=== PATIENT | female | born 1935 | race Caucasian/White ===

== ENCOUNTER 2018-08-04 21:34 | Observation (INO) ==
--- NOTE | 2018-08-04 21:52 | ED ---
HPI General Chief Complaint: Chest Pain Stated Complaint: Chest pain, high BP, Lung Cancer Time Seen by Provider: 08/04/18 21:50 Source: patient Mode of arrival: ambulatory Limitations: no limitations History of Present Illness HPI narrative: 82-year-old female came to the emergency room with history of right-sided chest pain near the shoulder. Patient says this is been going on for past 48 hours. The pain initially started off at the shoulder and now it has radiated down more to the right chest. No aggravating or relieving factors identified. Pain is 8 out of 10. Patient describes the pain as an ache. Patient was significantly hypertensive upon arrival. Patient says she has history of hypertension and her oncologist recently started her on another blood pressure medication 2 days back. No history of shortness of breath, nausea, vomiting or diaphoresis. She has history of lung cancer with right upper lobe resection in the past. She is on a maintenance chemotherapy currently. No history of coronary artery disease. Patient has not had this kind of pain in the past. Related Data Home Medications Medication Instructions Recorded Confirmed cholecalciferol (vitamin D3) 1,000 unit PO DAILY 08/04/18 08/04/18 [Vitamin D3] enalapril maleate 5 mg PO DAILY 08/04/18 08/04/18 gabapentin 600 mg PO DAILY 08/04/18 08/04/18 metoprolol tartrate 25 mg PO HS 08/04/18 08/04/18 Allergies Allergy/AdvReac Type Severity Reaction Status Date / Time adhesive Allergy Severe Blister Unverified 08/04/18 21:40 bacitracin Allergy Severe Blister Unverified 08/04/18 21:40 codeine Allergy Severe Hives Unverified 08/04/18 21:40 iodine Allergy Severe Hives Unverified 08/04/18 21:40 polymyxin B Allergy Severe Blister Unverified 08/04/18 21:40 potassium iodide Allergy Severe Blister Unverified 08/04/18 21:40 povidone-iodine Allergy Severe Blister Unverified 08/04/18 21:40 sodium iodide Allergy Severe Blister Unverified 08/04/18 21:40 sodium iodide Allergy Severe Blister Unverified 08/04/18 21:40 Sulfa (Sulfonamide Allergy Severe Hives Unverified 08/04/18 21:40 Antibiotics) Review of Systems ROS: all other systems reviewed are negative [facility] Medical History Medical History GERD (gastroesophageal reflux disease) (Acute) Hyperlipidemia (Acute) Hypertension (Acute) Lung cancer (Acute) Neuropathy (Acute) Surgical History Surgical History Hx of appendectomy (Acute) Hx of cholecystectomy (Acute) S/P lobectomy of lung (Acute) Social History Social History Substance History: No History of Abuse Second Hand Smoke Exposure: No Smoking Status: Never smoker How Often Do You Have a Drink Containing Alcohol: Never Hx Recent Travel: No Exam Narrative Exam Narrative: GENERAL: Awake, alert, anxious, moderate distress, elderly and frail SKIN: Focused skin assessment warm/dry. HEAD: Atraumatic. Normocephalic. EYES: Pupils equal and round. No scleral icterus. No injection or drainage. ENT: No nasal bleeding or discharge. Mucous membranes pink and moist. NECK: Trachea midline. No JVD. CARDIOVASCULAR: Regular rate and rhythm. No murmur appreciated. RESPIRATORY: No accessory muscle use. Clear to auscultation. Breath sounds equal bilaterally. GASTROINTESTINAL: Abdomen soft, non-tender, nondistended. Hepatic and splenic margins not palpable. MUSCULOSKELETAL: No obvious deformities. No clubbing. No cyanosis. No edema. NEUROLOGICAL: Awake and alert. No obvious cranial nerve deficits. Motor grossly within normal limits. Normal speech. PSYCHIATRIC: Appropriate mood and affect; insight and judgment normal. Course Initial Documented Vital Signs Temperature 97.8 F 08/04/18 21:43 Pulse Rate 99 H 08/04/18 21:43 Respiratory Rate 16 08/04/18 21:43 Blood Pressure 253/124 H 08/04/18 21:43 Pulse Oximetry 99 08/04/18 21:43 Last Documented Vital Signs Temperature 97.9 F 08/05/18 13:40 Pulse Rate 72 08/05/18 14:00 Respiratory Rate 16 08/05/18 13:40 Blood Pressure 105/65 08/05/18 13:40 Pulse Oximetry 98 08/05/18 13:40 Medical Decision Making MDM Narrative Medical decision making narrative: 11:08 PM blood test results are back and within acceptable limits. Patient was given morphine for the pain. I have given her medication to bring her blood pressure down and the last blood pressure is 180/90. Patient will be admitted to the chest pain center to rule out ACS at this point. Medical Screen Exam Complete: Yes Emergency Medical Condition: Yes Lab Data Result diagrams: 08/04/18 22:00 08/04/18 22:00 Lab Results 08/04/18 08/04/18 08/05/18 Range/Units 22:00 22:00 01:05 WBC 5.5 (4.0-11.0) th/mm3 RBC 3.83 L (4.00-5.30) mil/mm3 Hgb 12.8 (11.6-15.3) gm/dL Hct 35.9 (35.0-46.0) % MCV 93.6 (80.0-100.0) fL MCH 33.5 (27.0-34.0) pg MCHC 35.8 (32.0-36.0) % RDW 13.4 (11.6-17.2) % Plt Count 238 (150-450) th/mm3 MPV 7.2 (7.0-11.0) fL Neut % (Auto) 56.7 (16.0-70.0) % Lymph % (Auto) 28.5 (9.0-44.0) % [place] % (Auto) 8.7 H (0.0-8.0) % Eos % (Auto) 5.2 H (0.0-4.0) % Baso % (Auto) 0.9 (0.0-2.0) % Neut # (Auto) 3.1 (1.8-7.7) th/mm3 Lymph # (Auto) 1.6 (1.0-4.8) th/mm3 [place] # (Auto) 0.5 (0.0-0.9) th/mm3 Eos # (Auto) 0.3 (0.0-0.4) th/mm3 Baso # (Auto) 0.1 (0.0-0.2) th/mm3 WBC Differential . Differential Comment Auto diff final Sodium 145 (136-145) meq/L Potassium 3.6 (3.5-5.1) meq/L Chloride 108 H (98-107) meq/L Carbon Dioxide 29.3 (21.0-32.0) meq/L Anion Gap 8 (5-15) meq/L BUN 20 H (7-18) mg/dL Creatinine 0.77 (0.50-1.00) mg/dL Estimated GFR 72 L (>89) mL/min Random Glucose 110 H (74-106) mg/dL Calcium 8.8 (8.5-10.1) mg/dL Total Bilirubin 0.5 (0.2-1.0) mg/dL AST 28 (15-37) U/L ALT 22 (10-53) U/L Alkaline Phosphatase 141 H (45-117) U/L Total Creatine Kinase 109 (26-192) U/L Troponin I Less than 0.02 L Less than 0.02 L (0.02-0.05) ng/mL Total Protein 6.9 (6.4-8.2) g/dL Albumin 3.7 (3.4-5.0) g/dL 08/05/18 Range/Units 04:38 WBC (4.0-11.0) th/mm3 RBC (4.00-5.30) mil/mm3 Hgb (11.6-15.3) gm/dL Hct (35.0-46.0) % MCV (80.0-100.0) fL MCH (27.0-34.0) pg MCHC (32.0-36.0) % RDW (11.6-17.2) % Plt Count (150-450) th/mm3 MPV (7.0-11.0) fL Neut % (Auto) (16.0-70.0) % Lymph % (Auto) (9.0-44.0) % [place] % (Auto) (0.0-8.0) % Eos % (Auto) (0.0-4.0) % Baso % (Auto) (0.0-2.0) % Neut # (Auto) (1.8-7.7) th/mm3 Lymph # (Auto) (1.0-4.8) th/mm3 [place] # (Auto) (0.0-0.9) th/mm3 Eos # (Auto) (0.0-0.4) th/mm3 Baso # (Auto) (0.0-0.2) th/mm3 WBC Differential Differential Comment Sodium (136-145) meq/L Potassium (3.5-5.1) meq/L Chloride (98-107) meq/L Carbon Dioxide (21.0-32.0) meq/L Anion Gap (5-15) meq/L BUN (7-18) mg/dL Creatinine (0.50-1.00) mg/dL Estimated GFR (>89) mL/min Random Glucose (74-106) mg/dL Calcium (8.5-10.1) mg/dL Total Bilirubin (0.2-1.0) mg/dL AST (15-37) U/L ALT (10-53) U/L Alkaline Phosphatase (45-117) U/L Total Creatine Kinase 61 (26-192) U/L Troponin I Less than 0.02 L (0.02-0.05) ng/mL Total Protein (6.4-8.2) g/dL Albumin (3.4-5.0) g/dL Imaging Data Radiologist's impression: Chest X-Ray 08/04/18 22:00 CONCLUSION: Chronic changes without acute abnormality. Myocardial Perfusion Scan Nuc Med 08/05/18 00:00 CONCLUSION: 1. Unremarkable myocardial perfusion examination. ECG Data Attestation: I personally reviewed and interpreted this ECG as follows: Interpretation: Twelve-lead EKG was reviewed by me. Normal sinus rhythm, normal axis, nonspecific ST-T wave changes. Heart rate of 94 bpm. Discharge Plan Discharge Disposition Patient Disposition: ED Admit(ED Internal Use Only) Discharge Condition Condition: Stable Discharge Order Discharge Orders: Discharge Order (Routine); Ordered 08/05/18 Ordered By: Isaura Shafer ED Use Only Admit Order (Routine); Ordered 08/04/18 Ordered By: Shasha Rivas Physicians Team ED Provider: Shasha Rivas Primary Care Provider: Thomas Lamb Attending Provider: Arvin Llanos Other Providers: [facility],Insurance Status ED Status: Left Department Discharge Information Discharge Date/Time: 08/05/18 01:22
[2018-08-04] MEDS ORDERED: Morphine Inj 4 MG/ML Vial IV.PUSH ONE (22:00)
[2018-08-04] MEDS ORDERED: Metoprolol Tartrate 50 MG Tablet PO ONE (22:00)
[2018-08-04 22:15] LABS: Baso # (Auto) 0.1 th/mm3 (0.0-0.2); Baso % (Auto) 0.9 % (0.0-2.0); Eos # (Auto) 0.3 th/mm3 (0.0-0.4); Eos % (Auto) 5.2 % (0.0-4.0); Hematocrit 35.9 % (35.0-46.0); Hemoglobin 12.8 gm/dL (11.6-15.3); Lymph # (Auto) 1.6 th/mm3 (1.0-4.8); Lymph % (Auto) 28.5 % (9.0-44.0); Mean Corpuscular HGB Conc 35.8 % (32.0-36.0); Mean Corpuscular Hemoglobin 33.5 pg (27.0-34.0); Mean Corpuscular Volume 93.6 fL (80.0-100.0); Mean Platelet Volume 7.2 fL (7.0-11.0); Mono # (Auto) 0.5 th/mm3 (0.0-0.9); Mono % (Auto) 8.7 % (0.0-8.0); Neut # (Auto) 3.1 th/mm3 (1.8-7.7); Neut % (Auto) 56.7 % (16.0-70.0); Platelet Count 238 th/mm3 (150-450); Red Blood Count 3.83 mil/mm3 (4.00-5.30); Red Cell Distribution Width 13.4 % (11.6-17.2); White Blood Count 5.5 th/mm3 (4.0-11.0)
--- NOTE | 2018-08-04 22:17 | XR ---
EXAM DATE: 08/04/2018 10:14 PM EST AGE/SEX: 82 years / Female INDICATIONS: Right chest pain, increased blood pressure. CLINICAL DATA: This is the patient's initial encounter. Patient reports that signs and symptoms have been present for 2 days and indicates a pain score of 8/10. MEDICAL/SURGICAL HISTORY: Carcinoma, lung. . Right lobectomy. COMPARISON: [facility], XR CHEST PA AND LAT, 12/31/2017. . FINDINGS: A single AP view of the chest demonstrates chronic interstitial changes within the perihilar distribu tion of both lungs. Stable from the prior study. The lungs are hyper aerated. No acute infiltrate or effusion. Heart is normal in size. A degenerative thoracic spine. Cement augmentation involving a low er thoracic vertebral body likely T12. CONCLUSION: Chronic changes without acute abnormality. Electronically signed by: Brayan Gonzales MD Board Certified Radiologist 08/04/2018 10:15 PM EST
[2018-08-04 22:31] LABS: Alanine Aminotransferase 22 U/L (10-53)
[2018-08-04 22:34] LABS: Alkaline Phosphatase 141 U/L (45-117); Total Protein 6.9 g/dL (6.4-8.2)
[2018-08-04 22:36] LABS: Albumin 3.7 g/dL (3.4-5.0); Anion Gap 8 meq/L (5-15); Aspartate Aminotransferase 28 U/L (15-37); Blood Urea Nitrogen 20 mg/dL (7-18); Calcium 8.8 mg/dL (8.5-10.1); Carbon Dioxide 29.3 meq/L (21.0-32.0); Chloride 108 meq/L (98-107); Glomerular Filtration Rate 72 mL/min (>89); Glucose,Random 110 mg/dL (74-106); Potassium 3.6 meq/L (3.5-5.1); Sodium 145 meq/L (136-145)
[2018-08-05] MEDS ORDERED: niCARdipine Inj 25 MG in Sodium Chlor 0.9% Inj 240 ML IV.CONT PRN (00:24)
[2018-08-05] MEDS ORDERED: Ketorolac Inj 30 MG/ML (IVP) Vial IV.PUSH ONE (00:25)
[2018-08-05 02:11] LABS: Creatine Kinase 109 U/L (26-192)
[2018-08-05 07:07] LABS: Creatine Kinase 61 U/L (26-192)
--- NOTE | 2018-08-05 08:33 | P.HPCA ---
History of Present Illness Primary Care Physician: Thomas Lamb MD Chief Complaint: Chest pain History of Present Illness: 82-year-old female with history of right sided lung cancer, hypertension, and hyperlipidemia presents emergency room for further evaluation of right-sided chest pain. Onset 2 days ago. Comfort began in right shoulder initially, later radiating to right anterior chest. Characterized a "as sore muscle." Moderate in severity. Duration constant. No associated symptoms of nausea, dyspnea, or diaphoresis. No precipitating or relieving factors. No current discomfort, however states "I haven't started moving yet." No similar discomfort in the past. During discomfort episode took her blood pressure. Systolic blood pressure reported in be greater 200. At that time they notified their daughter who is a nurse. SBP remained elevated therefore came to ER for further evaluation. Follows with Dr. Leonard, reporting normal stress test early this year. Reports blood pressure normally well controlled. Currently on maintenance chemotherapy medication. No recent illness, fever, cough, or injury. Past cardiac testing 10/15/16 Lexiscan-Summary: Normal study. Normal left ventricular size and ejection fraction. No ischemia or infarction identified. 09/29/16 Echocardiogram-Summary: Normal left ventricular size and systolic function. Evidence of left ventricular diastolic dysfunction, grade 1. Mild aortic stenosis with mild +181. Mild +1 MR/TR. Social history Known hypertension and hyperlipidemia. No known CAD or diabetes. Lifelong non-smoker. No alcohol use. . - Diagnosis (1) Atypical chest pain (2) Hypertension (3) Non-small cell cancer of right lung Review of Systems All other systems reviewed negative except as stated in HPI [facility] - History History Provided By: Patient, Family Member - Medical History Medical History: Medical History (Last Updated 08/05/18 @ 08:53 by EDWARD Harp) GERD (gastroesophageal reflux disease) Hyperlipidemia Hypertension Lung cancer Neuropathy - Surgical History Surgical History: Surgical History (Last Updated 08/05/18 @ 08:53 by EDWARD Harp) Hx of appendectomy Hx of cholecystectomy S/P lobectomy of lung - Tobacco History Second Hand Smoke Exposure: No Tobacco Use In Past 30 Days: No Smoking Status: Never smoker - Alcohol History How Often Do You Have a Drink Containing Alcohol: Never - Substance Use History Substance History: No History of Abuse - Travel History History of Recent Travel: No Recent Travel in the [facility] Within the Last 8 Weeks: No Recent Travel Out of the Country Within the Last 8 Weeks: No - Immunization History Tetanus Immunization: Unsure Medications and Allergies Active Medications: Active Medications Enalapril Maleate (Vasotec) 5 mg PO DAILY [facility] Gabapentin (Neurontin) 600 mg PO DAILY [facility] Metoprolol Tartrate (Lopressor) 25 mg PO HS [facility] Vitamin D (Vitamin D3) 1,000 unit PO DAILY [facility] Allergies Allergy/AdvReac Type Severity Reaction Status Date / Time adhesive Allergy Severe Blister Unverified 08/04/18 21:40 bacitracin Allergy Severe Blister Unverified 08/04/18 21:40 codeine Allergy Severe Hives Unverified 08/04/18 21:40 iodine Allergy Severe Hives Unverified 08/04/18 21:40 polymyxin B Allergy Severe Blister Unverified 08/04/18 21:40 potassium iodide Allergy Severe Blister Unverified 08/04/18 21:40 povidone-iodine Allergy Severe Blister Unverified 08/04/18 21:40 sodium iodide Allergy Severe Blister Unverified 08/04/18 21:40 sodium iodide Allergy Severe Blister Unverified 08/04/18 21:40 Sulfa (Sulfonamide Allergy Severe Hives Unverified 08/04/18 21:40 Antibiotics) Home Medications Medication Instructions Recorded Confirmed Type cholecalciferol (vitamin D3) 1,000 unit PO DAILY 08/04/18 08/04/18 History [Vitamin D3] enalapril maleate 5 mg PO DAILY 08/04/18 08/04/18 History erlotinib [Tarceva] 75 mg PO DAILY 08/04/18 08/05/18 History gabapentin 600 mg PO DAILY 08/04/18 08/04/18 History metoprolol tartrate 25 mg PO HS 08/04/18 08/04/18 History Exam Vital signs: Vital Signs 08/04/18 21:43 08/04/18 21:56 08/04/18 22:03 Temperature 97.8 F Pulse Rate 99 H 97 H 92 H Respiratory Rate 16 18 Blood Pressure 253/124 H 217/102 H Pulse Oximetry 99 100 98 08/04/18 22:08 08/04/18 22:30 08/04/18 22:45 Temperature Pulse Rate 89 88 Respiratory Rate 16 16 Blood Pressure 234/97 H 182/111 H Pulse Oximetry 98 99 98 08/04/18 23:04 08/04/18 23:32 08/05/18 00:26 Temperature Pulse Rate 86 84 89 Respiratory Rate 16 16 16 Blood Pressure 182/90 H 175/89 H 201/97 H Pulse Oximetry 100 99 98 08/05/18 00:51 08/05/18 01:16 08/05/18 02:00 Temperature Pulse Rate 84 82 Respiratory Rate 16 16 Blood Pressure 157/77 H Pulse Oximetry 98 08/05/18 03:00 08/05/18 04:00 08/05/18 05:00 Temperature 98.2 F Pulse Rate 82 70 80 Respiratory Rate 18 Blood Pressure 140/76 Pulse Oximetry 98 08/05/18 06:00 08/05/18 07:00 Temperature Pulse Rate 85 75 Respiratory Rate Blood Pressure Pulse Oximetry Intake & Output 08/04/18 08/05/18 08/05/18 18:59 06:59 18:59 Intake Total 0 / 0 Balance 0 / 0 Weight 52 kg Intake: Oral 0 / 0 Other: # Voids 2 Narrative: GENERAL: Alert WN, WD, NAD, pleasant, frail, elderly female appears chronically ill HEAD: NC, AT EYES: Sclera clear, conjunctiva without injection ENT: Mucous membranes pink and moist NECK: Supple, no masses, trachea midline CV: RRR, without murmur, rub, gallop, no JVD, S1-S2. RESP: Diminished lungs throughout bilateral, no crackles, wheeze, rhonchi, symmetrical chest rise, nonlabored, able to speak in full sentences ABD: Soft, NT, ND, no masses, positive bowel tones EXT: Pulses +2x4, no dependent edema MS: Normal tone x4 extremities, nontender, no obvious deformities, full range of motion NEURO: Motor strength 5/5 PSYCH: A+O x3, pleasant affect, speaks softly, appropriate mood, insight and judgment SKIN: Normal turgor, normal texture, no lesions, no rashes, brisk cap refill, even hair distribution Results 08/04/18 22:00 08/04/18 22:00 Cardiac Enzymes 08/04/18 08/05/18 08/05/18 Range/Units 22:00 01:05 04:38 AST 28 (15-37) U/L Troponin I Less than 0.02 L Less than 0.02 L Less than 0.02 L (0.02-0.05) ng/mL CBC 08/04/18 Range/Units 22:00 WBC 5.5 (4.0-11.0) th/mm3 RBC 3.83 L (4.00-5.30) mil/mm3 Hgb 12.8 (11.6-15.3) gm/dL Hct 35.9 (35.0-46.0) % Plt Count 238 (150-450) th/mm3 Neut # (Auto) 3.1 (1.8-7.7) th/mm3 Lymph # (Auto) 1.6 (1.0-4.8) th/mm3 [place] # (Auto) 0.5 (0.0-0.9) th/mm3 Eos # (Auto) 0.3 (0.0-0.4) th/mm3 Baso # (Auto) 0.1 (0.0-0.2) th/mm3 Comprehensive Metabolic Panel 08/04/18 Range/Units 22:00 Sodium 145 (136-145) meq/L Potassium 3.6 (3.5-5.1) meq/L Chloride 108 H (98-107) meq/L Carbon Dioxide 29.3 (21.0-32.0) meq/L BUN 20 H (7-18) mg/dL Creatinine 0.77 (0.50-1.00) mg/dL Calcium 8.8 (8.5-10.1) mg/dL AST 28 (15-37) U/L ALT 22 (10-53) U/L Alkaline Phosphatase 141 H (45-117) U/L Total Protein 6.9 (6.4-8.2) g/dL Albumin 3.7 (3.4-5.0) g/dL Intake and Output 08/04/18 08/05/18 08/05/18 22:59 06:59 14:59 Intake Total 0 / 0 Balance 0 / 0 Intake: Oral 0 / 0 Other: # Voids 2 Weight 50.802 kg 52 kg - Imaging and Cardiology Imaging: Impressions Chest X-Ray 08/04/18 22:00 CONCLUSION: Chronic changes without acute abnormality. Caprini VTE Risk Assessment Caprini VTE Risk Assessment: Moderate/High Risk (score >= 2) Caprini Risk Assessment Model: Point Value = 1 Point Value = 2 Point Value = 3 Point Value = 5 Age 41-60 Minor surgery BMI > 25 kg/m2 Swollen legs Varicose veins or History of unexplained or recurrent spontaneous Oral contraceptives or hormone replacement Sepsis (< 1 month) Serious lung disease, including pneumonia (< 1 month) Abnormal pulmonary function Acute myocardial infarction Congestive heart failure (< 1 month) History of inflammatory bowel disease Medical patient at bed rest Age 61-74 Arthroscopic surgery Major open surgery (> 45 min) Laparoscopic surgery (> 45 min) Malignancy Confined to bed (> 72 hours) Immobilizing plaster cast Central venous access Age >= 75 History of VTE Family history of VTE Factor V Leiden Prothrombin [id number] Lupus anticoagulant Anticardiolipin antibodies Elevated serum homocysteine Heparin-induced thrombocytopenia Other congenital or acquired thrombophilia Stroke (< 1 month) Elective arthroplasty Hip, pelvis, or leg fracture Acute spinal cord injury (< 1 month) Prophylaxis Regimen: Total Risk Factor Score Risk Level Prophylaxis Regimen 0-1 Low Early ambulation 2 Moderate Order ONE of the following: *Sequential Compression Device (SCD) *Heparin 5000 units SQ BID 3-4 Higher Order ONE of the following medications: *Heparin 5000 units SQ TID *Enoxaparin/Lovenox 40 mg SQ daily (WT < 150 kg, CrCl > 30 mL/min) *Enoxaparin/Lovenox 30 mg SQ daily (WT < 150 kg, CrCl > 10-29 mL/min) *Enoxaparin/Lovenox 30 mg SQ BID (WT < 150 kg, CrCl > 30 mL/min) AND/OR *Sequential Compression Device (SCD) 5 or more Highest Order ONE of the following medications: *Heparin 5000 units SQ TID (Preferred with Epidurals) *Enoxaparin/Lovenox 40 mg SQ daily (WT < 150 kg, CrCl > 30 mL/min) *Enoxaparin/Lovenox 30 mg SQ daily (WT < 150 kg, CrCl > 10-29 mL/min) *Enoxaparin/Lovenox 30 mg SQ BID (WT < 150 kg, CrCl > 30 mL/min) AND *Sequential Compression Device (SCD) Assessment and Plan - Assessment (1) Atypical chest pain Code(s): R07.89 - Other chest pain Status: Acute Plan: Admitted chest pain center. ACS ruled out 3 sets of EKGs and cardiac enzymes. Seen and evaluated by Dr. Estrellita Campbell. Discomfort atypical. Given patient comorbidities patient given option of repeating chemical cardiac testing or optimizing blood pressure medications and discharge Patient and family undecided and requesting to call Dr. Singh for his recommendations. Will place call to Dr. Singh. Further disposition to follow. 0910-Dr. Singh out of office. Most recent nuclear testing October 2016. Discussed with patient and family in length. Proceed with Lexiscan this morning , if unremarkable plan to discharge home later this afternoon. (2) Hypertension Code(s): I10 - Essential (primary) hypertension Status: Acute Plan: Continue enalapril and metoprolol. Blood pressure improved and currently normotensive. Elevated blood pressure likely related to pain response and change in dietary intake. Continue to monitor. (3) Non-small cell cancer of right lung Code(s): C34.91 - Malignant neoplasm of unspecified part of right bronchus or lung Status: Chronic Plan: Instructed by Dr. Lamb to stop Tarceva Thursday07/30/18. Follow up with oncologist as previously instructed. (2) Hypertension Qualifiers: Hypertension type: unspecified Qualified Code(s): I10 - Essential (primary) hypertension
[2018-08-05] MEDS ORDERED: Gabapentin 300 MG Capsule PO SCH (09:00)
[2018-08-05 09:10] VITALS: RESP 16
[2018-08-05] MEDS ORDERED: Regadenoson Inj 0.4 MG/5 ML Syringe IV.PUSH ONE (12:14)
--- NOTE | 2018-08-05 13:24 | NM ---
EXAM DATE: 08/05/2018 1:17 PM EST AGE/SEX: 82 years / Female INDICATIONS:Angina. . Right chest pain. CLINICAL DATA: This is the patient's initial encounter. Patient reports that signs and symptoms have been present for 2 days and indicates a pain score of 5/10. MEDICAL/SURGICAL HISTORY: Hypercholesterolemia. Hypertension. Carcinoma, lung. GERD. Append ectomy. Cholecystectomy. Lobectomy. COMPARISON: No prior exams available for comparison. DOSE: 8.1 mCi Tc 99m Myoview at rest 26.8 mCi [id number] at stress 0.4 mg Lexiscan STRESS SYMPTOMS: None. EJECTION FRACTION: >70 % TECHNIQUE: The patient underwent pharmacologic stress with infusion of prescribed dose. Continuous ECG tracing was monitored during stress. Gated SPECT imaging was performed after stress and conventi onal SPECT imaging was performed at rest. The examination was performed on a SPECT/CT scanner, both attenuation and non-corrected datasets were reviewed. FINDINGS: Distribution: The maximum perfused segment at stress is in the anterior septal wall. Perfusion Study: The pattern of perfusion at stress is within normal limits. Gated Study: There are intact wall motion and wall thickening without hypokinetic or dyskinetic segm ents. The ejection fraction is calculated at >70%. RISK CATEGORY: Low (<1% Annual Motality Rate) CONCLUSION: 1. Unremarkable myocardial perfusion examination. Electronically signed by: Mario Guadarrama MD Board Certified Radiologist 08/05/2018 1:22 PM EST
[2018-08-05 13:43] VITALS: BP 105/65; TEMP 97.9; O2SAT 98
[2018-08-05] MEDS ORDERED: Acetaminophen 500 MG Tablet PO ONE (13:56)
[2018-08-05 14:54] VITALS: PULSE 72
--- NOTE | 2018-08-05 18:04 | TR ---
Date Performed: 08/05/2018 Time Performed: 12:30:12 DOCTOR: Estrellita Campbell DRUG LIST: CLINICAL HISTORY: REASON FOR TEST: REASON FOR ENDING: OBSERVATION: CONCLUSION: Lexiscan stress test was performed under standard four minute protocol. Radionuclid e was injected one minute prior to ending the test. No electrocardiographic abormalities were present to suggest ischemia. Nuclear imaging and interpretation are pending. COMMENTS: Lexiscan stress test was performed under standard four minute protocol. Radionuclide was injected one minute prior to ending the test. No electrocardiographic abormalities were present t o suggest ischemia. Nuclear imaging and interpretation are pending.
--- NOTE | 2018-08-05 19:49 | ECG ---
Date Performed: 08/04/2018 Time Performed: 21:53:23 PTAGE: 82 years EKG: Sinus rhythm POSSIBLE LEFT ATRIAL ENLARGEMENT LOW QRS VOLTAGE IN PRECORDIAL LEADS MINIMAL ST DEPRESSION Since the previous tracing, no significant change noted BORDERLINE ECG PREVIOUS TRACING : 05/14/2012 09.10 DOCTOR: Estrellita Campbell Interpretating Date/Time 08/05/2018 19:46:47
--- NOTE | 2018-08-05 19:49 | ECG ---
Date Performed: 08/05/2018 Time Performed: 01:10:51 PTAGE: 82 years EKG: Sinus rhythm LOW QRS VOLTAGE IN PRECORDIAL LEADS MINIMAL ST DEPRESSION Since the previous tracing, no significant change noted BORDERLINE ECG PREVIOUS TRACING : 08/04/2018 21.53 DOCTOR: Estrellita Campbell Interpretating Date/Time 08/05/2018 19:47:12
[2018-08-05] MEDS ORDERED: Metoprolol Tartrate 25 MG Tablet PO SCH (21:00)
== END 2018-08-05 15:30 | disposition home or self-care (01) ==
LOC: NEDA 21:34 → NEPC 21:34 → NEDA 08-05 01:22 → HCIN 08-05 01:26
PROVIDERS: ADMIT Internal Medicine Cardiovascular Disease; ATTEND Internal Medicine Cardiovascular Disease
CPT/HCPCS: 71010; 71045; 78452; 80053; 82550; 84484; 85025; 90774; 90775; 90784; 93005; 93017; 96374; 96375; 99285; A9502; C8952; G0378; J1885; J2270; J2785; Q9969